=== PATIENT | female | born 1965 | race Hispanic/Latino ===

== ENCOUNTER 2018-05-24 11:30 | Outpatient (AMBR) | payer MEDICARE, MEDICAID, SELFPAY ==
--- NOTE | 2018-05-19 11:01 | PT.OIERPT ---
PT OP Initial Eval Patient Information Visit Reasons: KNEE PAIN Medical Diagnosis: Right Knee Pain Treatment Dx #1: Right Knee Pain Treatment Dx #2: Right Knee Mobility Deficits Start of Care: 05/19/18 Date of Onset: 02/15/18 Initial Assessment Subjective Pt is a 52 y/o female s/p right TKA 02/15/18. Pt was in a SNF for 3 weeks and received a few sessions of home health PT. Pt still has 8/10 knee pain on the outside and behind her knee. Pt currently has difficulty with prolonged sitting, standing, chores, walking, cooking, cleaning, and performing her functional tasks. Pt mention that she does attend the gym for the pool daily. She performs most of her exercises in the pool. Objective Right Knee AROM: -18 deg to 120 deg Right Knee MMTs Quads: 3+/5 Hs: 3+/5 Right Hip MMTs Glute Med: 3/5 Glute Max: 3/5 Knee Outcome Score: 35% Assessment Pt demonstrate right knee pain with weakness in the knee and hip leading to decline function s/p right knee TKA. Pt will benefit from physical therapy to increase strength, mobility, and work on functional tasks. 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 1) Increase knee outcome score to 80% and knee MMTs to 4+/5 in 6 wks to be able to walk more than 2 hrs 2) Increase decrease right knee contracture to -8 deg in 6 wks to improve on gait coil winding machines set up mechanic in stance phase 3) Increase right hip MMTs to 4/5 in 6 wks to be able to perform chores around the house 4) Indep with HEP Treatment Plan 1) Manual Therapy 2) Therapeutic Activities 3) Therapeutic Exercises 4) Modalities (ice, heat) Frequency and Duration 2 x wk for 6 wks Certification Dates: 05/19/18 to 08/19/18 Office Procedures PT Outpatient G-Codes Date of Service PT Date of Service: 05/19/18 G-Codes Walking & Moving Around Mobility Current Status G-Code: G8978: CL 60-80% Mobility Status G-Code: G8979: CI 1-20% PT Procedures PT Date of Service: 05/19/18 OP PT Eval Mod Complex 30 minutes: Yes
--- NOTE | 2018-05-19 11:11 | PTNOTE_ITS ---
PT OP Initial Eval Patient Information Visit Reasons: KNEE PAIN Medical Diagnosis: Right Knee Pain Treatment Dx #1: Right Knee Pain Treatment Dx #2: Right Knee Mobility Deficits Start of Care: 05/19/18 Date of Onset: 02/15/18 Initial Assessment Subjective Pt is a 52 y/o female s/p right TKA 02/15/18. Pt was in a SNF for 3 weeks and received a few sessions of home health PT. Pt still has 8/10 knee pain on the outside and behind her knee. Pt currently has difficulty with prolonged sitting , standing, chores, walking, cooking, cleaning, and performing her functional tasks. Pt mention that she does attend the gym for the pool daily. She performs most of her exercises in the pool. Objective Right Knee AROM: -18 deg to 120 deg Right Knee MMTs Quads: 3+/5 Hs: 3+/5 Right Hip MMTs Glute Med: 3/5 Glute Max: 3/5 Knee Outcome Score: 35% Assessment Pt demonstrate right knee pain with weakness in the knee and hip leading to decline function s/p right knee TKA. Pt will benefit from physical therapy to increase strength, mobility, and work on functional tasks. 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 1) Increase knee outcome score to 80% and knee MMTs to 4+/5 in 6 wks to be able to walk more than 2 hrs 2) Increase decrease right knee contracture to -8 deg in 6 wks to improve on gait proof load mechanic in stance phase 3) Increase right hip MMTs to 4/5 in 6 wks to be able to perform chores around the house 4) Indep with HEP Treatment Plan 1) Manual Therapy 2) Therapeutic Activities 3) Therapeutic Exercises 4) Modalities (ice, heat) Frequency and Duration 2 x wk for 6 wks Certification Dates: 05/19/18 to 08/19/18 Office Procedures PT Outpatient G-Codes Date of Service PT Date of Service: 05/19/18 G-Codes Walking & Moving Around Mobility Current Status G-Code: G8978: CL 60-80% Mobility Status G-Code: G8979: CI 1-20% PT Procedures PT Date of Service: 05/19/18 OP PT Eval Mod Complex 30 minutes: Yes
--- NOTE | 2018-05-22 08:45 | PT.ODAYNRPT ---
PT Outpatient Daily Note Date of Service: May 22, 2018 OP Daily Note Visit Reasons: KNEE PAIN Outpatient Physical Therapy Treatment Date: 05/22/18 Subjective: Pt's knee still hurts a little on the side. Objective: Please see flow chart for list of ther ex performed Assessment: minimal knee pain with exercises performed today. Plan: Continue with PT Length of Time (minutes) of Treatment: 30 Minutes Office Procedures PT Outpatient G-Codes Date of Service PT Date of Service: 05/19/18 G-Codes Walking & Moving Around Mobility Current Status G-Code: G8978: CL 60-80% Mobility Status G-Code: G8979: CI 1-20% PT Procedures PT Date of Service: 05/19/18 OP PT Eval Mod Complex 30 minutes: Yes PT Procedures PT Date of Service: 05/22/18 Therapeutic Exercise 30 minutes: Yes
--- NOTE | 2018-05-24 12:34 | PT.ODAYNRPT ---
PT Outpatient Daily Note Date of Service: May 24, 2018 OP Daily Note Visit Reasons: KNEE PAIN Outpatient Physical Therapy Treatment Date: 05/24/18 Subjective: Pt's knee is a little better. Pt still notice some pain on the outside of her knee which is less Objective: Please see flow chart for list of ther ex performed Assessment: tolerate exercises with minimal pain Plan: Continue with PT Length of Time (minutes) of Treatment: 30 Minutes Office Procedures PT Outpatient G-Codes Date of Service PT Date of Service: 05/19/18 G-Codes Walking & Moving Around Mobility Current Status G-Code: G8978: CL 60-80% Mobility Status G-Code: G8979: CI 1-20% PT Procedures PT Date of Service: 05/19/18 OP PT Eval Mod Complex 30 minutes: Yes PT Procedures PT Date of Service: 05/22/18 Therapeutic Exercise 30 minutes: Yes PT Procedures PT Date of Service: 05/24/18 Therapeutic Exercise 30 minutes: Yes
== END 2018-05-27 23:59 ==
PROVIDERS: PCP Physician Assistant; Referring Provider Physician Assistant; Visit Provider Orthopaedic Surgery
DX: I10 Essential (primary) hypertension (principal)
CPT/HCPCS: 97110; 97162; G8978; G8979

== ENCOUNTER 2018-06-23 11:00 | Outpatient (AMBR) | payer MEDICARE, MEDICAID, SELFPAY ==
--- NOTE | 2018-06-01 14:03 | PT.ODAYNRPT ---
PT Outpatient Daily Note Date of Service: June 01, 2018 OP Daily Note Visit Reasons: right knee Outpatient Physical Therapy Treatment Date: 06/01/18 Subjective: pt reported popping of the L knee with squats but denies pain. Objective: see flow sheet. Assessment: while she is performing wall squats using the SB I can hear the popping of the L knee but pt was still able to complete all reps. pt was able to step onto the 6 step fine with no difficulty but was using the handrails for safety. equal WB noted during weight shifting which eliminates compensation. pt wanted to use ice pack home instead. Plan: continue POC per PT. Length of Time (minutes) of Treatment: 30 Minutes Office Procedures PT Procedures PT Date of Service: 06/01/18 Therapeutic Exercise 30 minutes: Yes
--- NOTE | 2018-06-06 11:59 | PT.ODAYNRPT ---
PT Outpatient Daily Note Date of Service: June 06, 2018 OP Daily Note Visit Reasons: right knee Outpatient Physical Therapy Treatment Date: 06/06/18 Subjective: Pt's knee feels good slight tightness in the back. Objective: Please see flow chart for list of ther ex performed Assessment: tolerate exercises with minimal pain Plan: Continue with PT Length of Time (minutes) of Treatment: 30 Minutes Office Procedures PT Procedures PT Date of Service: 06/01/18 Therapeutic Exercise 30 minutes: Yes PT Procedures PT Date of Service: 06/06/18 Therapeutic Exercise 30 minutes: Yes
--- NOTE | 2018-06-08 15:16 | PT.ODAYNRPT ---
PT Outpatient Daily Note Date of Service: June 08, 2018 OP Daily Note Visit Reasons: right knee Outpatient Physical Therapy Treatment Date: 06/08/18 Subjective: pt reported going to the gym in the water and doing some exercises which has helped her mobility. Objective: see flow sheet. Assessment: added new exercises to increase ROM and mobility. walking lunges in the PB showed good knee ROM but poor upper body posture so cued pt keep trunk upright. pt was able to complete a few laps with no difficulty getting back up. pt had no complaints after the stepper stretch if anything she felt better after a a few reps completed. Plan: continue POC per PT. Length of Time (minutes) of Treatment: 30 Minutes Office Procedures PT Procedures PT Date of Service: 06/01/18 Therapeutic Exercise 30 minutes: Yes PT Procedures PT Date of Service: 06/06/18 Therapeutic Exercise 30 minutes: Yes PT Procedures PT Date of Service: 06/08/18 Therapeutic Exercise 30 minutes: Yes
--- NOTE | 2018-06-12 14:38 | PT.ODAYNRPT ---
PT Outpatient Daily Note Date of Service: June 12, 2018 OP Daily Note Visit Reasons: right knee Outpatient Physical Therapy Treatment Date: 06/12/18 Subjective: pt still has little pain but doing a lot better. pt did have a lot soreness after last session due to new exercises. Objective: see flow sheet. Assessment: pt has slight knee flexion during calf stretches using the stepper stretch indicating tightness of the HS. advised pt to continue to stretch the HS to decrease tension. pt has good step length with the RLE but not when she steps forward with the LLE. demonstrated the correct form and pt understood but needs more practice. Plan: continue POC per PT. Length of Time (minutes) of Treatment: 30 Minutes Office Procedures PT Procedures PT Date of Service: 06/12/18 Therapeutic Exercise 30 minutes: Yes PT Procedures PT Date of Service: 06/01/18 Therapeutic Exercise 30 minutes: Yes PT Procedures PT Date of Service: 06/06/18 Therapeutic Exercise 30 minutes: Yes PT Procedures PT Date of Service: 06/08/18 Therapeutic Exercise 30 minutes: Yes
--- NOTE | 2018-06-14 12:02 | PT.ODAYNRPT ---
PT Outpatient Daily Note Date of Service: June 14, 2018 OP Daily Note Visit Reasons: right knee Outpatient Physical Therapy Treatment Date: 06/14/18 Subjective: Pt's knee feels much better. Pt still notice soreness after PT but exercises are getting easier. Pt is walking longer with less pain. Objective: Please see flow chart for list of ther ex performed Assessment: tolerate exercises with minimal pain Plan: Continue with PT Length of Time (minutes) of Treatment: 30 Minutes Office Procedures PT Procedures PT Date of Service: 06/12/18 Therapeutic Exercise 30 minutes: Yes PT Procedures PT Date of Service: 06/14/18 Therapeutic Exercise 30 minutes: Yes PT Procedures PT Date of Service: 06/01/18 Therapeutic Exercise 30 minutes: Yes PT Procedures PT Date of Service: 06/06/18 Therapeutic Exercise 30 minutes: Yes PT Procedures PT Date of Service: 06/08/18 Therapeutic Exercise 30 minutes: Yes
--- NOTE | 2018-06-21 12:03 | PT.ODS1RPT ---
PT OP Progress/Discharge Note Date of Service: June 21, 2018 Progress Note/DC Note Progress Note/Discharge Note: Progress Note Patient Information Visit Reasons: right knee Medical Diagnosis: Right Knee Pain Treatment Dx #1: Right Knee Pain Service Continue Service or Discharge: Continue Service Certification Date Certification Dates: 06/21/18 to 09/21/18 Status Subjective: Pt mention that her knee sitll hurts on the outisde 04/06 with prolonged walking or standing. Pt notice that her knee is moving better with minimal limitation. Pt has been able to perform squatting activities. Pt still unable to kneel due to fear and pain. Pt further mention that she resume driving without limitation. Objective: Right Knee AROM: -8 deg to 123 deg Right Knee MMTs Quads: 4-/5 Hs: 4-/5 Right Hip MMTs Glute Med: 3+/5 Glute Max: 3+/5 Knee Outcome Score: 55% Assessment: Pt demonstrate improvement with knee mobility and strength allowing her to start light ADLs, ambulate without AD, and perform chores with less restriction. Pt will continue to benefit from physical therapy to increase strength, mobility, and work on functional tasks to meet set goals; thank you for your referrals. Plan: Continue with PT Office Procedures PT Outpatient G-Codes Date of Service PT Date of Service: 06/21/18 G-Codes Walking & Moving Around Mobility Current Status G-Code: G8978: CL 60-80% Mobility Status G-Code: G8979: CK 40-60% PT Procedures PT Date of Service: 06/12/18 Therapeutic Exercise 30 minutes: Yes PT Procedures PT Date of Service: 06/14/18 Therapeutic Exercise 30 minutes: Yes PT Procedures PT Date of Service: 06/21/18 Therapeutic Exercise 30 minutes: Yes PT Procedures PT Date of Service: 06/01/18 Therapeutic Exercise 30 minutes: Yes PT Procedures PT Date of Service: 06/06/18 Therapeutic Exercise 30 minutes: Yes PT Procedures PT Date of Service: 06/08/18 Therapeutic Exercise 30 minutes: Yes
--- NOTE | 2018-06-23 12:52 | PT.ODAYNRPT ---
PT Outpatient Daily Note Date of Service: June 23, 2018 OP Daily Note Visit Reasons: right knee Outpatient Physical Therapy Treatment Date: 06/23/18 Subjective: pt she still has some pain but has improved with time. swelling has also improved. Objective: see flow sheet. Assessment: pt can deep squat but inside the PB as she uses the hand rails. good ROM and form with no difficulties. pt can hold her SLS for those few seconds without holding onto the rails. pt's gait pattern has also improved with no limping. advised pt to use ice pack if needed at home for the pain soreness. Plan: continue POC per PT. Length of Time (minutes) of Treatment: 30 Minutes Office Procedures PT Outpatient G-Codes Date of Service PT Date of Service: 06/21/18 G-Codes Walking & Moving Around Mobility Current Status G-Code: G8978: CL 60-80% Mobility Status G-Code: G8979: CK 40-60% PT Procedures PT Date of Service: 06/12/18 Therapeutic Exercise 30 minutes: Yes PT Procedures PT Date of Service: 06/14/18 Therapeutic Exercise 30 minutes: Yes PT Procedures PT Date of Service: 06/21/18 Therapeutic Exercise 30 minutes: Yes PT Procedures PT Date of Service: 06/23/18 Therapeutic Exercise 30 minutes: Yes PT Procedures PT Date of Service: 06/01/18 Therapeutic Exercise 30 minutes: Yes PT Procedures PT Date of Service: 06/06/18 Therapeutic Exercise 30 minutes: Yes PT Procedures PT Date of Service: 06/08/18 Therapeutic Exercise 30 minutes: Yes
== END 2018-06-27 23:59 | disposition home or self-care (01) ==
PROVIDERS: PCP Physician Assistant; Referring Provider Physician Assistant; Visit Provider Orthopaedic Surgery
DX: I10 Essential (primary) hypertension (principal)
CPT/HCPCS: 97110; G8978; G8979

== ENCOUNTER 2018-07-07 13:30 | Outpatient (AMBR) | payer MEDICARE, MEDICAID, SELFPAY ==
--- NOTE | 2018-07-05 11:55 | PT.ODAYNRPT ---
PT Outpatient Daily Note Date of Service: July 05, 2018 OP Daily Note Visit Reasons: right knee Outpatient Physical Therapy Treatment Date: 07/05/18 Subjective: Pt's knee feeling much better. Pt has been able to walk, stand, and perform chores with less difficulty Objective: Please see flow chart for list of ther ex performed Assessment: tolerate exercises performed; improve dynamic balance Plan: Continue with PT Length of Time (minutes) of Treatment: 45 Minutes Office Procedures PT Procedures PT Date of Service: 07/05/18 Therapeutic Activity 15 minutes: Yes Therapeutic Exercise 30 minutes: Yes
--- NOTE | 2018-07-07 14:07 | PT.ODS1RPT ---
PT OP Progress/Discharge Note Date of Service: July 07, 2018 Progress Note/DC Note Progress Note/Discharge Note: DC Note Patient Information Visit Reasons: right knee Medical Diagnosis: Right Knee Pain Treatment Dx #1: Right Knee Mobility Deficits Treatment Dx #2: Right Knee Weakness Service Continue Service or Discharge: Discharge Discharge Date: 07/07/18 Status Subjective: Pt mention that her knee is doing much better. Pt has been able to walk, stand, perform chores, and self care activities with no limitation. Pt feels comfortable being release from physical therapy with exercises to continue at home. Objective: Right Knee AROM: - 8 deg to 125 deg Right Knee MMTs Quads: 4/5 Hs: 4/5 Right Hip MMTs Glute Med: 3+/5 Glute Max: 3+/5 Knee Outcome Score: 82% Assessment: Pt demonstrate good functional knee mobility and strength allowing her to resume ADLs, chores, and ambualtion with minimal limitation. Pt will no longer benefit from physical therapy due to meeting set goals in therapy as no further reported knee pain. Pt was instructed on HEP last session and educated to continue exercises to maintain overall mobility. Pt performed all exercises safely, thank you for your referrals. Plan: D/C home with HEP and follow up with MD REYNA Office Procedures PT Outpatient G-Codes Date of Service PT Date of Service: 07/07/18 G-Codes Walking & Moving Around Mobility Status G-Code: G8979: CL 60-80% Mobility DC Status G-Code: G8980: CI 1-20% PT Procedures PT Date of Service: 07/05/18 Therapeutic Activity 15 minutes: Yes Therapeutic Exercise 30 minutes: Yes PT Procedures PT Date of Service: 07/07/18 Therapeutic Activity 15 minutes: Yes Therapeutic Exercise 15 minutes: Yes
== END 2018-07-28 23:59 | disposition home or self-care (01) ==
PROVIDERS: PCP Physician Assistant; Referring Provider Physician Assistant; Visit Provider Physician Assistant
DX: I10 Essential (primary) hypertension (principal)
CPT/HCPCS: 97110; 97530; G8979; G8980